=== PATIENT | female | born 1945 | race Caucasian/White ===

== ENCOUNTER 2017-07-20 11:00 | Day surgery (SDC) | payer MEDICARE ==
[~2017-07-20] VITALS: Ht 149.9 cm; Wt 81.2 kg
[~2017-07-20 11:00] MED LIST: BUPROPION150 M3 PO; GABAPENTIN100 MG PO; LISINOPRIL10 MG PO; MELOXICAM7.5 MG PO; MULTI VIT PO; SIMVASTATIN40 MG PO; SINGULAIR10 MG PO; TRAMADOL HCL50 MG PO; VITAMIN C PO; [UNRECOGNIZED DRUG - OTHER] PO
[2017-07-20 15:12] VITALS: BP 147/67
== END 2017-07-20 14:42 | disposition home or self-care (01) ==
LOC: ENDO 11:00 → ORM 13:35 → ENDO 13:50 → ORM 14:05 → ENDO 14:42
PROVIDERS: ATTEND Internal Medicine Gastroenterology
PROC: 0DBP8ZX Excision of Rectum, Via Natural or Artificial Opening Endoscopic, Diagnostic (ICD-10-PCS; principal; 2017-07-20)
PROC: 0DBN8ZX Excision of Sigmoid Colon, Via Natural or Artificial Opening Endoscopic, Diagnostic (ICD-10-PCS; 2017-07-20)
DX: K57.30 Diverticulosis of large intestine without perforation or abscess without bleeding (principal); K64.8 Other hemorrhoids; K64.4 Residual hemorrhoidal skin tags; K62.1 Rectal polyp; K63.5 Polyp of colon; Q43.8 Other specified congenital malformations of intestine; I10 Essential (primary) hypertension; E78.00 Pure hypercholesterolemia, unspecified; Z86.010 Personal history of colon polyps